=== PATIENT | male | born 1940 | race Asian ===

== ENCOUNTER 2020-02-12 08:41 | Emergency (ER) | payer MEDICARE, OTHER ==
[~2020-02-12] VITALS: Ht 177.8 cm; Wt 63.6 kg
[2020-02-12] MEDS ORDERED: MECL25TA39 PO (08:52)
[2020-02-12] MEDS ORDERED: SODIUM CHLORIDE 0.9% 1,000 ML IV ONE (09:30)
[2020-02-12] MEDS ORDERED: LORazepam 0.5 MG TABLET PO ONE (09:30)
[2020-02-12 10:01] LABS: BASOPHILS % (AUTO) 0.4 % (0.0-2.0); EOSINOPHILS % (AUTO) 1.2 % (1.0-6.0); HEMATOCRIT 41.6 % (41-53); HEMOGLOBIN 13.7 g/dL (13.5-17.5); LYMPHOCYTES # (AUTO) 0.7 K/uL (1.0-4.8); LYMPHOCYTES % (AUTO) 8.4 % (22.0-44.0); MEAN CORPUSCULAR HEMOGLOBIN 29.9 pg (26.0-34.0); MEAN CORPUSCULAR VOLUME 91 fL (80-100); MONOCYTES # (AUTO) 0.3 K/uL (0.1-1.0); MONOCYTES % (AUTO) 3.6 % (2.0-9.0); NEUTROPHILS # (AUTO) 7.2 K/uL (1.8-7.7); PLATELET COUNT (AUTO) 214 K/uL (150-450); RED BLOOD CELL COUNT(AUTO) 4.58 MIL/uL (4.50-5.90); RED CELL DISTRIBUTION WIDTH 14.9 % (11.5-14.5)
[2020-02-12 10:02] LABS: NEUTROPHILS % (AUTO) 86.4 % (40.0-70.0)
[2020-02-12 10:16] LABS: ANION GAP 5 mmol/L (8-16); CARBON DIOXIDE 28 mmol/L (22-29); CHLORIDE 107 mmol/L (98-107); CREATININE 0.95 mg/dL (0.60-1.30); GLUCOSE,RANDOM 193 mg/dL (70-110); POTASSIUM 3.4 mmol/L (3.5-5.1); SODIUM SERUM 140 mmol/L (136-145); UREA NITROGEN, BLOOD 20 mg/dL (7-18)
[2020-02-12 10:18] LABS: GLOMERULAR FILTR. RATE CALC > 60 mL/min (>60)
[2020-02-12 10:22] LABS: CREATINE KINASE, TOTAL ONLY 42 U/L (39-308)
[2020-02-12] MEDS ORDERED: IOVERSOL 350 MG/ML 100 ML VIAL ONE (10:55)
[2020-02-12] MEDS ORDERED: SODIUM CHLORIDE 0.9% 100 ML ONE (10:55)
[2020-02-12 11:03] LABS: APPEARANCE,URINE CLEAR (CLEAR); BILIRUBIN,URINE NEGATIVE (NEGATIVE); GLUCOSE, URINE (UA) 250 mg/dL (NEGATIVE); KETONES,URINE NEGATIVE (NEGATIVE); LEUKOCYTE ESTERASE ,URINE NEGATIVE (NEGATIVE); NITRATE,URINE NEGATIVE (NEGATIVE); OCCULT BLOOD,URINE NEGATIVE (NEGATIVE); PH,URINE 6.5 (5.0-8.0); PROTEIN,URINE TRACE (NEGATIVE); UROBILINOGEN,URINE 0.2 mg/dL (<=1.0)
[2020-02-12 11:10] LABS: RBC,URINE 0-2 /HPF (0-2); WBC,URINE 0-2 /HPF (0-5)
[2020-02-12 11:11] LABS: BACTERIA,URINE None Seen /HPF (None Seen); HYALINE CASTS, URINE 0-2 /LPF (None Seen)
[2020-02-12 13:06] VITALS: BP 126/60
== END 2020-02-12 13:20 | disposition home or self-care (01) ==
LOC: EMS 08:45
DX: R42 Dizziness and giddiness (principal); B88.9 Infestation, unspecified; I10 Essential (primary) hypertension
CPT/HCPCS: 36415; 70496; 70498; 80048; 81001; 82550; 83735; 84484; 85025; 93005; 96360; 96361; 99285; J7030; J7050; Q9967

== ENCOUNTER 2022-05-18 16:19 | Emergency (ER) | payer MEDICARE, OTHER ==
[~2022-05-18] VITALS: Ht 177.8 cm; Wt 68.2 kg
[~2022-05-18 16:19] MED LIST: MECL25TA39 PO
[2022-05-18 16:21] VITALS: BP 119/69
== END 2022-05-18 17:16 | disposition left against medical advice (07) ==
LOC: EMS 16:19
DX: Z53.21 Procedure and treatment not carried out due to patient leaving prior to being seen by health care provider (principal)